=== PATIENT | female | born 1995 | race Caucasian/White ===

== ENCOUNTER 2017-06-12 05:05 | Emergency (ER) | payer BC ==
[~2017-06-12] VITALS: Ht 165.1 cm; Wt 92.0 kg
[2017-06-12 05:30] LABS: ADD MIUA? YES; BILIRUBIN NEGATIVE; BLOOD LARGE; COLOR YELLOW ((YELLOW)); GLUCOSE (STRIP) NEGATIVE; KETONES 5; LEUKOCYTES NEGATIVE; NITRITE POSITIVE; PROTEIN (STRIP) 30; SPECIFIC GRAVITY 1.024 (1.000-1.030)
[2017-06-12 05:46] LABS: CHLORIDE 107 mEq/L (99-109); POTASSIUM 3.4 mEq/L (3.7-5.4); SODIUM 141 mEq/L (136-147)
[2017-06-12 05:48] LABS: HEMATOCRIT 35.4 % (36.0-46.0); MCH 31.2 PG (29.0-34.0); MCHC 33.3 G/DL (30.0-36.0); MCV 93.7 FL (83-99); PLATELET COUNT 258 K/uL (156-360); RBC DIS.WIDTH-CV 13.2 % (11.8-14.6); RBC DIS.WIDTH-SD 45.2 % (39-53); RED BLOOD COUNT 3.78 M/uL (3.80-5.20); WHITE BLOOD COUNT 8.4 K/uL (4.1-10.2)
[2017-06-12 05:49] LABS: GLUCOSE 98 mg/dL (70-99)
[2017-06-12 05:50] LABS: ANION GAP 8 MEQ/L (2-14)
[2017-06-12 05:51] LABS: TOTAL BILIRUBIN 0.3 mg/dL (0.0-1.0)
[2017-06-12 05:52] LABS: ALKALINE PHOSPHATASE 87 IU/L (3-129); GFR ESTIMATE (CALCULATED) > 59 mL/min/
[2017-06-12 05:53] LABS: UREA NITROGEN (BUN) 11 mg/dL (9-23)
[2017-06-12 06:01] LABS: QUANTITATIVE HCG < 4.0 MIU/ML
[2017-06-12 06:46] LABS: RED BLOOD CELLS TNTC /HPF (0-5)
[2017-06-12 06:47] LABS: BACTERIA 3+ /HPF; EPITHELIAL CELLS 1+ /HPF; MUCUS 1+ /LPF; UCUL ADDED? YES; WHITE BLOOD CELLS NONE SEEN /HPF (0-5)
[2017-06-12] MEDS ORDERED: PYRIDIUM200 MG PO (06:59)
[2017-06-12] MEDS ORDERED: BACTRIM,SEPT1 TABLET PO (06:59)
[2017-06-12] MEDS ORDERED: MOTRIN800 MG PO (07:05)
[2017-06-12 07:38] VITALS: BP 122/82
== END 2017-06-12 07:40 | disposition home or self-care (01) ==
LOC: EME 05:05
DX: N39.0 Urinary tract infection, site not specified (principal); N20.0 Calculus of kidney; Z87.442 Personal history of urinary calculi
CPT/HCPCS: 74176; 80053; 81003; 84702; 85027; 87077; 87086; 87186; 99281; 99284